=== PATIENT | male | born 1995 | race Caucasian/White ===

== ENCOUNTER → 2017-02-16 | Outpatient (CLI) | payer SELFPAY ==
--- NOTE | 2017-02-16 11:35 | RAD ---
Examination: X-rays of the left ankle. Clinical history: Acute left ankle pain after falling and twisting ankle. Technique: Three views of the left ankle were obtained. Comparison: None available. Findings: There is an incomplete nondisplaced oblique fracture involving the medial malleolus of the distal tib ia. Soft tissue swelling is seen at the medial aspect of the ankle. Impression: 1. Fracture of the medial malleolus of the distal tibia, as described above. Reported By:
== END | disposition home or self-care (01) | DRG 556 ==
LOC: RAD 11:06
PROVIDERS: ATTEND Internal Medicine
DX: M25.572 Pain in left ankle and joints of left foot (principal); M84.472A Pathological fracture, left ankle, initial encounter for fracture
CPT/HCPCS: 73610

== ENCOUNTER → 2017-03-02 | Outpatient (CLI) | payer SELFPAY ==
--- NOTE | 2017-03-02 10:44 | RAD ---
HISTORY: Follow up fracture Study: Left ankle AP, lateral, mortise Comparison: February 16, 2017 Findings: Once again noted is an intra-articular fracture of the base of the medial malleolus which is unchange d in position when compared with the prior examination. There has been resorption along the fracture line however no callus formation is present. The distal fibula and tibiotalar joints are intact. IMPRESSION: Intra-articular fracture of the base of the medial malleolus demonstrating some resorption along the fracture line but no definite callus formation as yet. Reported By:
== END ==
LOC: RAD 09:30
PROVIDERS: ATTEND Specialist
DX: S82.55XD Nondisplaced fracture of medial malleolus of left tibia, subsequent encounter for closed fracture with routine healing (principal); X58.XXXD Exposure to other specified factors, subsequent encounter
CPT/HCPCS: 73610